=== PATIENT | male | born 1990 | race Two or more races ===

== ENCOUNTER 2022-03-18 16:34 | Emergency (ER) | payer MEDICAID ==
[~2022-03-18] VITALS: Ht 195.6 cm; Wt 83.9 kg
[2022-03-18 16:34] VITALS: BP 118/69
[2022-03-18] MEDS ORDERED: IBUPROFEN 600 MG TABLET PO ONE (17:30)
[2022-03-18] MEDS ORDERED: IBUPROFEN 600 MG TABLET ONE (17:33)
[2022-03-18] MEDS ORDERED: NAPR-1009 PO (17:47)
== END 2022-03-18 18:18 | disposition home or self-care (01) ==
LOC: ER 16:47
DX: S67.196A Crushing injury of right little finger, initial encounter (principal); S60.151A Contusion of right little finger with damage to nail, initial encounter; F17.200 Nicotine dependence, unspecified, uncomplicated; F12.90 Cannabis use, unspecified, uncomplicated; W23.0XXA Caught, crushed, jammed, or pinched between moving objects, initial encounter; Y93.89 Activity, other specified; Y92.89 Other specified places as the place of occurrence of the external cause; Y99.8 Other external cause status
CPT/HCPCS: 73140-TC

== ENCOUNTER 2022-05-25 19:20 | Emergency (ER) | payer MEDICAID ==
[~2022-05-25] VITALS: Ht 195.6 cm; Wt 83.9 kg
[~2022-05-25 19:20] MED LIST: NAPR-1009 PO
--- NOTE | 2022-05-25 20:10 | NUR ---
BIBS C/O LEFT ARM PAIN X2DAYS. PT ALERT AND ORIENTED. RR EVEN AND NONLABORED. CONNECTED TO MONITOR. VSS.
[2022-05-25] MEDS ORDERED: NAPROXEN 250 MG TABLET ONE (21:56)
[2022-05-25] MEDS ORDERED: ACETAMINOPHEN ES 500 MG TABLET PO ONE (22:00)
[2022-05-25] MEDS ORDERED: NAPROXEN 250 MG TABLET PO ONE (22:00)
[2022-05-25] MEDS ORDERED: NAPR-1009 PO (22:03)
[2022-05-25 22:18] VITALS: BP 116/70
--- NOTE | 2022-05-25 22:18 | NUR ---
Patient discharged to home in stable condition. Written and verbal after care instructions given. Patient verbalizes understanding of instruction.
== END 2022-05-25 22:19 | disposition home or self-care (01) ==
LOC: ER 19:22
DX: S46.812A Strain of other muscles, fascia and tendons at shoulder and upper arm level, left arm, initial encounter (principal); Z60.2 Problems related to living alone; Z79.1 Long term (current) use of non-steroidal anti-inflammatories (NSAID); X50.0XXA Overexertion from strenuous movement or load, initial encounter; Y93.89 Activity, other specified; Y92.89 Other specified places as the place of occurrence of the external cause; Y99.0 Civilian activity done for income or pay
CPT/HCPCS: 73060-TC